=== PATIENT | male | born 1960 | race Hispanic/Latino ===

== ENCOUNTER 2024-08-06 06:45 | Day surgery (SDC) | payer OTHER ==
[2024-08-02 10:04] LABS: Absolute Eosinophils 0.1 K/uL (0-0.5); Absolute Lymphocytes (CBC) 1.5 K/uL (0.7-4.9); Absolute Monocytes 0.7 K/uL (0.1-1.3); Absolute Neutrophil 2.5 K/uL (1.8-8.0); Basophils % 0.5 % (0-1.3); Eosinophils % 2.1 % (0-4.4); Hematocrit 40.8 % (39.6-49.0); Hemoglobin 13.7 g/dL (13.6-17.9); Lymphocytes % 30.6 % (15.3-44.8); MCH 31.8 pg (27.0-35.0); MCHC 33.5 g/dL (32.0-36.0); MPV 8.7 fL (7.6-11.3); Monocytes % 13.9 % (3.3-12.3); Neutrophils % 52.9 % (41.7-73.7); Nucleated Red Blood Cells % 0.1 % (0-0); Platelets 235 thou/uL (152-406)
[2024-08-02 10:16] LABS: PT Prothrombin Time 10.5 SECONDS (9.4-12.5)
[2024-08-02 10:17] LABS: Anion Gap 6.1 mEq/L (5.0-15.0); Potassium 4.1 mEq/L (3.5-5.1)
--- NOTE | 2024-08-02 11:21 | EKG ---
Test Date: 2024-08-02 Test Time: 10:42:38 Assistant Manager: CLIF MEASUREMENT RESULTS: Intervals: Rate: 64 LA: 160 QRSD: 98 QT: 394 QTc: 406 Oketo: P: 33 LA: 160 QRS: -9 T: 32 INTERPRETIVE STATEMENTS: Normal sinus rhythm Normal ECG Compared to ECG 07/13/2024 15:04:04 No significant changes Electronically Signed On 08-02-24 11:20:28 BRILLIANDEER LOOPER by Evan Multani
[2024-08-06] MEDS ORDERED: NA CHLORIDE 0.9% 500 ML ONE (06:47)
[2024-08-06] MEDS ORDERED: HEPA 1000U/500MLS 2,000 UNIT/1,000 ML BAG IV ONE (06:51)
[2024-08-06] MEDS ORDERED: NITROGLYCERIN/D5W 50 MG/250 ML BTL IV ONE (06:52)
[2024-08-06] MEDS ORDERED: MIDAZOLAM HCL 2 MG/2 ML INJ ONE (06:52)
[2024-08-06] MEDS ORDERED: HEPARIN 10,000 UNIT/10 ML VIAL IV ONE (06:52)
[2024-08-06] MEDS ORDERED: ATROPINE SULF 1 MG/10 ML SYR IV ONE (06:52)
[2024-08-06] MEDS ORDERED: ASPIRIN 325 MG TAB ONE (06:53)
[2024-08-06] MEDS ORDERED: HEPARIN 5000 UNIT/ML 1 ML VIAL ONE (06:53)
[2024-08-06] MEDS ORDERED: CLOPIDOGREL 75 MG TABLET ONE (06:53)
[2024-08-06] MEDS ORDERED: FENTANYL CITR 100 MCG/2 ML ONE (06:53)
[2024-08-06] MEDS ORDERED: TICAGRELOR 90 MG TABLET PO ONE (06:53)
[2024-08-06] MEDS ORDERED: NALOXONE 0.4 MG/ML VIAL ONE (06:53)
[2024-08-06] MEDS ORDERED: VERAPAMIL HCL 10 MG/4 ML VIAL IV ONE (06:54)
[2024-08-06] MEDS ORDERED: FLUMAZENIL 0.1 MG/ML (5 mL VIAL) IV ONE (06:54)
[2024-08-06] MEDS ORDERED: LIDOCAINE 1% 20 ML MDV ONE (06:55)
[2024-08-06 09:06] VITALS: TEMP 97.5
--- NOTE | 2024-08-06 09:08 | OP ---
Date of Procedure: 08/06/2024 Surgeon: PILI CHAPMAN Procedures Performed: 1. Selective coronary angiogram. 2. Left heart catheterization. Indication: Chest pain with abnormal stress test. Access: Right radial artery 6-Comoran closed with TR band. Complications: None. Bleeding: Less than 50 mL. Total Sedation Time: 45 minutes. Used fentanyl, Versed. Description Of Procedure: After risks, benefits, and alternatives were explained, the patient agreed to procedure and signed informed consent. The patient was brought into cardiac catheterization labo [facility], prepped and draped in a sterile fashion. Then, I accessed right radial artery using NOZAi c micropuncture kit, placed 6-Comoran slender sheath and took 5-Comoran Ravenel 4 catheter over J-wire in to the aortic root, crossed the aortic valve, measured the LVEDP. Pullback did not record any gradie nt and then engaged left main, took standard views and then the RCA, took standard views and then rem ham[place] the catheter and the sheath, placed TR band with good hemostasis. Findings: 1. Left main: Very large and normal. 2. Proximal segment is large with ostial 30% stenosis. Rest of the LAD is normal. Normal diagonal b ranches. 3. Ramus intermedius: Moderate-sized and normal. 4. Left circumflex: Very large and dominant and normal. 5. RCA: Small, nondominant and normal. 6. Elevated LVEDP at 20 mmHg. Conclusion: Mild coronary artery disease with elevated LVEDP. Recommendation: Medical management. /CASSIE Voice ID: [id number] Report ID: [id number]
[2024-08-06 09:55] VITALS: O2SAT 97
[2024-08-06 11:24] VITALS: BP 144/85
== END 2024-08-06 10:35 | disposition home or self-care (01) ==
LOC: CCL 06:45
PROVIDERS: ATTEND Internal Medicine
DX: I25.10 Atherosclerotic heart disease of native coronary artery without angina pectoris (principal); I70.223 Atherosclerosis of native arteries of extremities with rest pain, bilateral legs; I10 Essential (primary) hypertension; E78.2 Mixed hyperlipidemia; E11.9 Type 2 diabetes mellitus without complications; Z79.84 Long term (current) use of oral hypoglycemic drugs; Z79.899 Other long term (current) drug therapy
CPT/HCPCS: 93005; 85025; 80048; 36415; 85610; 82947; 85730; 93458; 76937; C1893; Q9966; J1644; J2003; J2250; J3010; J7040; 99152; 99153; J0461; J2310

== ENCOUNTER 2025-04-13 23:59 | Emergency (ER) | payer OTHER ==
--- OUTSIDE RECORDS SUMMARY | 2025-04-14 00:04 | XMS REPORT | Continuity of Care Document ---
Author Name Unknown Address [address] [place] [address] [place] [address] [address] [place] [address] Care Team Providers Care [employer] Project Manager Name Role Phone Unavailable Unavailable Unavailable Encounters Start Date/Time End Date/Time Encounter Type Admission Type Attending Clinicians Care Facility Care Department Encounter ID Source 2018-12-20 08:15:00 Inpatient [id number] [facility]
--- NOTE | 2025-04-14 00:17 | EDPHYS ---
Physician Documentation [facility] Name: Arvind Alanis Age: 65 yrs Sex: Male : 1960 Arrival Date: 04/13/2025 Time: 23:59 Bed 14 Private MD: ED Physician Saman Medellin HPI: 04/14 00:57 This 65 yrs old Male presents to ER via Ambulatory with complaints of sb4 Toothache, Facial Swelling. 00:57 The patient presents with pain, redness, swelling. Patient reports dental pain, gum sb4 swelling, facial swelling in the left upper jaw. States that he has diabetes and smokes, has not seen a dentist. Denies any fever or chills. Has been taking Tylenol. Historical: - Allergies: 00:29 No Known Allergies; ha1 - PMHx: 00:29 Hypertensive disorder; Diabetes mellitus; Hypercholesterolemia; ha1 - Immunization history:: Adult Immunizations not up to date. - Infectious Disease History:: Denies. - Social history:: Smoking status: Patient reports the use of cigarette tobacco products, smokes one-half pack cigarettes per day. ROS: 00:57 Constitutional: Negative for fever, chills, and weight loss, sb4 00:57 ENT: Positive for dental pain, 00:57 All other systems are negative, Exam: 00:57 Head/Face: Normocephalic, atraumatic. Eyes: Extra-ocular motions intact. Periorbital sb4 areas with no swelling, redness, or edema. Respiratory: No increased work of breathing, no retractions or nasal flaring. Skin: Warm, dry with normal turgor. Normal color with no rashes, no lesions, and no evidence of cellulitis. 00:57 Constitutional: The patient appears in no acute distress, alert, awake, comfortable, 00:57 ENT: Dental exam: abscess, that is moderate, specifically in the hard palate, dental caries, that is moderate, diffusely, fractured teeth are noted, diffusely, gum swelling, that is mild, diffusely, missing teeth, diffusely, pain, diffusely, Vital Signs: 00:06 BP 173 / 83; Pulse 82; Resp 18 S; Temp 98.5; Pulse Ox 97% on R/A; Weight 77.11 kg; ha1 Height 5 ft. 5 in. ; Pain 10/10; 00:55 BP 166 / 88; Pulse 87; Resp 18; Pulse Ox 99% on R/A; ss12 00:06 Body Mass Index 28.29 (77.11 kg, 165.1 cm) ha1 00:06 Pain Scale: Adult ha1 Meliza Coma Score: 00:56 Eye Response: spontaneous(4). Motor Response: obeys commands(6). Verbal Response: ss12 oriented(5). Total: 15. Procedures: 00:29 I \T\ D: Incision and drainage was performed for an abscess of the hard palate Incised sb4 with 18 gauge and syringe, aspirated 5 mLs. Drained moderate amount purulent fluid. the patient tolerated the procedure well. MDM: 00:06 Medical Screening Exam initiated sb4 00:57 Differential diagnosis: dental caries, gingivitis, dental abscess. Data reviewed: vital sb4 signs, nurses notes, and as a result, I will discharge patient. Counseling: I had a detailed discussion with the patient and/or guardian regarding the historical points, exam findings, and any diagnostic results supporting the discharge/admit diagnosis, the need for outpatient follow up, a dentist, to return to the emergency department if symptoms worsen or persist or if there are any questions or concerns that arise at home. Administered Medications: 00:45 Drug: Amoxicillin-Clavulanate PO 875 mg PO once Route: PO; ss12 00:54 Follow up: Response: No adverse reaction ss12 00:45 Drug: Ibuprofen PO 600 mg PO once Route: PO; ss12 00:54 Follow up: Response: No adverse reaction 12 Disposition: 02:49 Co-signature as Attending Physician, Saman Medellin MD I agree with the assessment sp4 and plan of care. I reviewed the patient's care provided by Advanced Practice Provider \T\ agree w/ the diagnosis \T\ care plan. I personally saw the pt \T\ performed a substantive portion of the visit, incldng all aspects of the (History/Exam/Medical Decision Making). Disposition Summary: 04/14/25 00:17 Discharge Ordered Notes: Location: Home sb4 Problem: new sb4 Symptoms: have improved sb4 Condition: Stable sb4 Diagnosis - Cellulitis and abscess of mouth - hard palate sb4 Followup: sb4 - With: Lamine Stephenson DDS - When: 2 - 3 days - Reason: Recheck today's complaints, Re-evaluation by your physician Discharge Instructions: - Discharge Summary Sheet sb4 - Dental Abscess sb4 Forms: - Antibiotic Education sb4 - Patient Portal Instructions sb4 - Leadership Thank You Letter sb4 Prescriptions: - Amoxicillin 875 mg Oral Tablet - take 1 tablet ORAL route every 12 hours for 10 days; 20 tablet; Refills: 0, sb4 Product Selection Permitted - Ibuprofen 600 mg Oral Tablet - take 1 tablet ORAL route every 6 hours As needed take with food; 30 tablet; sb4 Refills: 0, Product Selection Permitted Signatures: Irene Bass, RN RN ha1 Freda Bauman PA-C PA-C sb4 Saman Medellin MD MD sp4 Justin Anderson RN RN ss12 Corrections: (The following items were deleted from the chart) 00:27 00:17 Dental root caries sb4 sb4 00:33 00:29 I \T\ D: Incision and drainage was performed for an abscess of the hard palate sb4 Incised with 18 gauge and syringe, aspirated 5 mLs. Drained moderate amount serosanguinous fluid. the patient tolerated the procedure well, sb4
[2025-04-14] MEDS ORDERED: IBUPROFEN 200 MG TAB PO ONE (00:45)
[2025-04-14] MEDS ORDERED: IBUPROFEN 400 MG TAB ONE (00:45)
[2025-04-14] MEDS ORDERED: AMOX/K CLAV 875 MG TAB ONE (00:45)
--- NOTE | 2025-04-14 00:59 | ER ---
Nurse's Notes [facility] Name: Arvind Alanis Age: 65 yrs Sex: Male : 1960 Arrival Date: 04/13/2025 Time: 23:59 Bed 14 Private MD: Diagnosis: Cellulitis and abscess of mouth-hard palate Presentation: 04/14 00:06 Chief complaint: Patient states: TOOTH ACHE , LEFT JAW SWELLING . BUMP ON THE LEFT ha1 UPPER ROOF OF MOUTH. 00:06 Method Of Arrival: Ambulatory ha1 00:06 Coronavirus screen: Client denies travel out of the [place] in the last 14 days. Ebola ha1 Screen: No symptoms or risks identified at this time. Initial Sepsis Screen: Does the patient meet any 2 criteria? No. Patient's initial sepsis screen is negative. Does the patient have a suspected source of infection? No. Patient's initial sepsis screen is negative. Risk Assessment: Do you want to hurt yourself or someone else? Patient reports no desire to harm self or others. Onset of symptoms was April 14, 2025. 00:06 Acuity: JEAN MARIE 4 ha1 Triage Assessment: 00:29 General: Appears uncomfortable, Behavior is cooperative. Pain: Complains of pain in ha1 mouth and hard palate Pain currently is 10 out of 10 on a pain scale. Neuro: Level of Consciousness is awake, alert, obeys commands, Oriented to person, place, time, situation. Cardiovascular: Capillary refill < 3 seconds Patient's skin is warm and dry. Respiratory: Airway is patent Respiratory effort is even, unlabored, Respiratory pattern is regular, symmetrical. GI: No signs and/or symptoms were reported involving the gastrointestinal system. Abdomen is round non-distended. Derm: Skin is normal. Musculoskeletal: Circulation, motion, and sensation intact. 00:56 EENT: Reports pain in mouth. ss12 Historical: - Allergies: 00:29 No Known Allergies; ha1 - PMHx: 00:29 Hypertensive disorder; Diabetes mellitus; Hypercholesterolemia; ha1 - Immunization history:: Adult Immunizations not up to date. - Infectious Disease History:: Denies. - Social history:: Smoking status: Patient reports the use of cigarette tobacco products, smokes one-half pack cigarettes per day. Screenin:32 [facility] ED Fall Risk Assessment (Adult) History of falling in the last 3 months, ha1 including since admission No falls in past 3 months (0 pts) Confusion or Disorientation No (0 pts) Intoxicated or Sedated No (0 pts) Impaired Gait No (0 pts) Mobility Assist Device Used No (0 pt) Altered Elimination No (0 pt) Score/Fall Risk Level 0 - 2 = Low Risk Oriented to surroundings, Maintained a safe environment, Educated pt \T\ family on fall prevention, incl call for assistance when getting out of bed, Hourly rounding (assess needs \T\ fall precautionary measures) done. Abuse screen: Denies threats or abuse. Denies injuries from another. Nutritional screening: No deficits noted. Tuberculosis screening: No symptoms or risk factors identified. Assessment: 00:10 General: Appears in no apparent distress. Behavior is calm, cooperative, quiet. Pain: ss12 Complains of pain in mouth Pain currently is 5 out of 10 on a pain scale. Neuro: No deficits noted. Level of Consciousness is awake, alert, obeys commands, Oriented to person, place, time, situation. Cardiovascular: No deficits noted. Capillary refill Patient's skin is warm and dry. Respiratory: No deficits noted. Airway is patent Respiratory effort is even, unlabored, Respiratory pattern is regular, symmetrical. GI: No deficits noted. No signs and/or symptoms were reported involving the gastrointestinal system. : No deficits noted. No signs and/or symptoms were reported regarding the genitourinary system. EENT: No deficits noted. No signs and/or symptoms were reported regarding the EENT system. Derm: No deficits noted. No signs and/or symptoms reported regarding the dermatologic system. Musculoskeletal: No deficits noted. No signs and/or symptoms reported regarding the musculoskeletal system. Vital Signs: 00:06 BP 173 / 83; Pulse 82; Resp 18 S; Temp 98.5; Pulse Ox 97% on R/A; Weight 77.11 kg; ha1 Height 5 ft. 5 in. ; Pain 10/10; 00:55 BP 166 / 88; Pulse 87; Resp 18; Pulse Ox 99% on R/A; ss12 00:06 Body Mass Index 28.29 (77.11 kg, 165.1 cm) ha1 00:06 Pain Scale: Adult ha1 Meliza Coma Score: 00:56 Eye Response: spontaneous(4). Motor Response: obeys commands(6). Verbal Response: ss12 oriented(5). Total: 15. ED Course: 00:05 Patient arrived in ED. im 00:06 Freda Bauman PA-C is PHCP. sb4 00:06 Saman Medellin MD is Attending Physician. sb4 00:17 Lamine Stephenson DDS is Referral Physician. sb4 00:29 Triage completed. ha1 00:42 Justin Anderson RN is Primary Nurse. ss12 00:56 Arm band placed on right wrist. ss12 00:56 Patient has correct armband on for positive identification. ss12 00:56 Provided Education on: plan of care discussed with the patient. ss12 00:57 No provider procedures requiring assistance completed. ss12 00:57 Patient did not have IV access during this emergency room visit. ss12 Administered Medications: 00:45 Drug: Amoxicillin-Clavulanate PO 875 mg PO once Route: PO; ss12 00:54 Follow up: Response: No adverse reaction ss12 00:45 Drug: Ibuprofen PO 600 mg PO once Route: PO; ss12 00:54 Follow up: Response: No adverse reaction ss12 Medication: 00:56 VIS not applicable for this client. ss12 Outcome: 00:17 Discharge ordered by . sb4 00:57 Discharged to home ambulatory, ss12 00:57 Condition: stable 00:57 Discharge instructions given to patient, Instructed on discharge instructions, follow up and referral plans. Demonstrated understanding of instructions, follow-up care, medications, Prescriptions given X 2, 00:58 Patient left the ED. ss12 Signatures: Irene Bass RN RN 1 Freda Bauman PA-C PA-C sb4 Ruby Good im Justin Anderson, RAFAEL RN 12
[2025-04-14 05:48] VITALS: TEMP 98.5
[2025-04-14 05:50] VITALS: BP 166/88; O2SAT 99
== END 2025-04-14 00:58 | disposition home or self-care (01) ==
LOC: ER 23:59
PROC: 0W930ZZ Drainage of Oral Cavity and Throat, Open Approach (ICD-10-PCS; principal; 2025-04-14)
DX: K12.2 Cellulitis and abscess of mouth (principal); F17.210 Nicotine dependence, cigarettes, uncomplicated
CPT/HCPCS: 99283